=== PATIENT | male | born 1995 | race Caucasian/White ===

== ENCOUNTER 2016-04-27 16:18 | Emergency (ER) | payer OTHER ==
[~2016-04-27] VITALS: Ht 172.7 cm; Wt 81.8 kg
[~2016-04-27 16:18] MED LIST: AC500T; ACET-789 PO; ALBU2.5V12; ARIP10TA14; ARIP20TA7 PO; ATOR20TA PO; BPR100T PO; CETI10CA; CLINDAMYCIN; CLON1TAB PO; CLR500T PO; FLUC200T PO; GBPN300C; GUAI600T3 PO; IBP200T PO; LEVO5TAB18; LEVO5TAB18 PO; METH20TA PO; MIRT15TA98 PO; NF-ESOM40C PO; NF-FLON16G; OMEP40CA3; ONDN4T PO; PARO10TA24; PARO30TA74 PO; PARO40TA47 PO; QTP100T PO; TRH2T PO; [UNRECOGNIZED DRUG - REMARK]
--- OUTSIDE RECORDS SUMMARY | 2016-04-27 16:26 | XMS REPORT | Continuity of Care Document ---
Author Author [facility] Organization [facility] Address Unknown Phone Unavailable Care Team Providers Care Office Worker Name Role Phone PCP Unavailable Source Comments Some departments are not documenting in the electronic medical record. If you do not see the information that you expected, contact Release of Information in the Health Information Management department at [phone] for further assistance in locating additional records.[facility] Active Allergies and Adverse Reactions No Known Allergies Current Medications Prescription Sig. Disp. Refills Start End Date Status Date MULTIVITAMIN PO Take by mouth. Active amoxicillin/K clavulanate Take 1 Tab by mouth twice Active (AUGMENTIN) 875/125 mg daily. tablet traZODone (DESYREL) 100 Take 100 mg by mouth Active mg tablet daily as needed. risperiDONE (RISPERDAL) 3 Take 3 mg by mouth daily. Active mg tablet DULoxetine DR (CYMBALTA) Take 30 mg by mouth Active 30 mg capsule daily. Levocetirizine (XYZAL) 5 Take by mouth daily. Active mg Tab guaiFENesin LA (MUCINEX) Take 600 mg by mouth as Active 600 mg tablet Needed. esomeprazole DR(+) Take 2 Caps by mouth 30 Cap 2 02/20/20 Active (NEXIUM) 20 mg capsule every morning. Take 1 cap 11 by mouth every morning famotidine (PEPCID) 20 mg Take 1 Tab by mouth at 30 Tab 2 02/20/20 Active tablet bedtime daily. 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 Gastroesophageal reflux disease 02/19/2011 Allergic rhinitis 02/19/2011 Immune deficiency disorder (HCC) 02/19/2011 Overview: possible Social History Tobacco Use Types Packs/Day Years Used Date Never Smoker Smokeless Tobacco: Never Used Alcohol Use Drinks/Week oz/Week Comments No Last Filed Vital Signs Vital Sign Reading Time Taken Blood Pressure - - Pulse - - Temperature - - Respiratory Rate - - Height - - Weight 89.994 kg (198 lb 6.4 oz) 02/19/2011 11:14 AM CDT Body Mass Index - - Oxygen Saturation - - Plan of Care Health Maintenance Due Date Last Done Comments Physical (Comprehensive) 2001 Exam Hpv Vaccines (#1) 2005 Pertussis Vaccine 2005 Tetanus Vaccine 2011 Influenza Vaccine 12/25/2015 Results from Last 3 Months Not on file
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
[2016-04-27] MEDS ORDERED: ACET1TAB43 PO (19:18)
[2016-04-27 19:40] VITALS: BP 111/69
[2016-06-07] MEDS ORDERED: PRED20TA PO (13:04)
[2016-06-09] MEDS ORDERED: BENZ-22 PO (15:13)
[2016-06-10] MEDS ORDERED: DOXY100C2 PO (19:46)
[2016-07-18] MEDS ORDERED: FLUO40CA12 PO (15:24)
[2016-07-18] MEDS ORDERED: CLON0.5T PO (15:24)
[2016-07-18] MEDS ORDERED: TRAZ100T92 PO (15:24)
[2016-07-18] MEDS ORDERED: TRM50T PO (15:58)
== END 2016-04-27 19:28 | disposition home or self-care (01) ==
LOC: EDUNIT# 16:18 → ED 16:20
DX: S60.222A Contusion of left hand, initial encounter (principal); W22.09XA Striking against other stationary object, initial encounter; Y92.009 Unspecified place in unspecified non-institutional (private) residence as the place of occurrence of the external cause
CPT/HCPCS: 73130; 99283; L3908

== ENCOUNTER → 2016-06-07 | Outpatient (CLI) | payer OTHER ==
[2016-06-07 16:31] VITALS: BP 133/79
== END ==
LOC: MHUC 12:46
PROVIDERS: ATTEND Physician Assistant
DX: R09.81 Nasal congestion (principal); R05 Cough
CPT/HCPCS: 99213

== ENCOUNTER 2016-06-10 18:22 | Emergency (ER) | payer OTHER ==
[~2016-06-10] VITALS: Ht 172.7 cm; Wt 83.0 kg
[2016-06-10] MEDS ORDERED: ALBUTEROL 0.083% NEB SOLUTION 2.5 MG/3 ML VIAL INH ONE ×2 (18:55→19:45)
[2016-06-10] MEDS ORDERED: IPRATROPIUM 0.02% NEB SOLN 0.5 MG/2.5 ML (ATROVENT) INH ONE (18:55)
[2016-06-10 19:31] LABS: INFLUENZA VIRUS TYPE A ANTIBOD Negative (NEGATIVE); INFLUENZA VIRUS TYPE B ANTIBOD Negative (NEGATIVE)
[2016-06-10] MEDS ORDERED: DOXYCYCLINE 100 MG (VIBRAMYCIN) TABLET PO ONE (19:45)
[2016-06-10] MEDS ORDERED: BENZONATATE 100 MG (TESSALON) CAPSULE PO ONE (19:45)
[2016-06-10 19:55] VITALS: BP 125/72
== END 2016-06-10 20:05 | disposition home or self-care (01) ==
LOC: ED 18:23
DX: J20.9 Acute bronchitis, unspecified (principal)
CPT/HCPCS: 71020; 87502; 94640; 99282; J7613; 99283

== ENCOUNTER 2016-07-18 15:03 | Emergency (ER) | payer OTHER ==
[~2016-07-18] VITALS: Ht 172.7 cm; Wt 87.7 kg
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
[2016-07-18 16:06] VITALS: BP 132/69
== END 2016-07-18 16:07 | disposition home or self-care (01) ==
LOC: ED 15:06
DX: S46.811A Strain of other muscles, fascia and tendons at shoulder and upper arm level, right arm, initial encounter (principal); X50.0XXA Overexertion from strenuous movement or load, initial encounter; Y93.89 Activity, other specified
CPT/HCPCS: 72072; 99282; 99283